=== PATIENT | female | born 1980 | race Caucasian/White ===

== ENCOUNTER 2016-05-28 16:02 | Emergency (ER) | payer OTHER ==
--- NOTE | 2016-05-28 17:48 | ED ---
General Adult HPI - General Chief complaint: Extremity Injury, Lower Stated complaint: knee injury-[facility] Time Seen by Provider: 05/28/16 17:29 Source: patient, RN notes reviewed Mode of arrival: ambulatory Limitations: no limitations - History of Present Illness Initial comments: Physical 36-year-old female presents with right knee pain 1 week. Patient states she fell from standing last week and has noticed the pain is persistent. Patient had swelling to the knee but this has improved. Patient complains of a bruise to the knee. Patient states there is pain to the anterior portion of the right knee. Patient denies any numbness/weakness or tingling. Patient has been able to ambulate. Patient Denies any chance of being .Patient denies any recent fever, chills, shortness breath, chest pain, abdominal pain, nausea/vomiting/diarrhea, back pain, hematuria, headache, or visual changes, or any other complaints. - Related Data Home Medications Medication Instructions Recorded Confirmed No Known Home Medications [No 05/28/16 05/28/16 Known Home Medications] Allergies Allergy/AdvReac Type Severity Reaction Status Date / Time Penicillins Allergy Dyspnea Verified 05/28/16 17:22 Review of Systems ROS Statement: Those systems with pertinent positive or pertinent negative responses have been documented in the HPI. ROS Other: All systems not noted in ROS Statement are negative. Past Medical History Past Medical History: No Reported History Additional Past Medical History / Comment(s): depression History of Any Multi-Drug Resistant Organisms: None Reported Past Surgical History: Section Past Psychological History: Depression Smoking Status: Never smoker Past Alcohol Use History: Occasional Past Drug Use History: None Reported General Exam - General Exam Comments Initial Comments: General: The patient is awake and alert, in no distress, and does not appear acutely ill. Neck: The neck is supple, there is no tenderness or JVD. Cardiovascular: There is a regular rate and rhythm. No murmur, rub or gallop is appreciated. Respiratory: Lungs are clear to auscultation, respirations are non-labored, breath sounds are equal. No wheezes, stridor, rales, or rhonchi. Musculoskeletal: Patient has tenderness to the anterior and medial portions of the right knee. There is old and healing ecchymosis to the anterior portion of the right knee. Patient's right knee is stable with varus and valgus stress and with anterior/posterior drawer test. There is no tenderness to palpation of the lateral aspect of the knee. Patient is ambulatory. Strength 5/5 and Sensation intact. Posterior tibial pulses 2+ bilaterally. Neurological: A&O x 3. CN II-XII intact, There are no obvious motor or sensory deficits. Coordination appears grossly intact. Speech is normal. Skin: There is old and healing ecchymosis to the anterior portion of the right knee. Skin is warm and dry and no rashes or lesions are noted. Psychiatric: Normal mood and affect. Limitations: no limitations Course Vital Signs 05/28/16 05/28/16 16:47 19:11 Temperature 97.8 F 97 F L Pulse Rate 78 88 Respiratory 16 18 Rate Blood Pressure 122/67 133/65 O2 Sat by Pulse 97 97 Oximetry Medical Decision Making - Medical Decision Making This is a 36-year-old female presents with right knee pain. On physical exam Patient has tenderness to the anterior and medial portions of the right knee. There is old and healing ecchymosis to the anterior portion of the right knee. Patient's right knee is stable with varus and valgus stress and with anterior/ posterior drawer test. There is no tenderness to palpation of the lateral aspect of the knee. Patient is ambulatory in the EC today. Strength 5/5 and Sensation intact. Posterior tibial pulses 2+ bilaterally. An x-ray of the right knee was done and read showing:No acute process. Reported by Dr. Woodard. Discussed rest, ice, elevate and use an Ruben wrap for compression. Patient states she has an Ruben wrap at home. Patient denies the need for crutches and is ambulatory in the EC. I discussed Tylenol and Motrin for the pain. Discussed that patient should follow up with PCP in one to 2 days or return to the [facility] for any worsening symptoms or for any further concerns. Patient was receptive to this plan and patient will be discharged home. Disposition Clinical Impression: Knee contusion Disposition: HOME SELF-CARE Condition: Good Instructions: Knee Pain (ED) Additional Instructions: Please rest, ice, elevate and use Ruben wrap for compression. Please use Tylenol and/or Motrin as needed for any pain. Please follow-up with family doctor in the next 2 days of symptoms have not improved. Please return to emergency room if the symptoms increase or worsen or for any other concerns. Referrals: None,Stated [Primary Care Provider] - 1-2 days Misti Virgen MD [STAFF PHYSICIAN] - 1-2 days Time of Disposition: 18:38
[2016-05-28 19:11] VITALS: BP 133/65; PULSE 88; RESP 18; TEMP 97
--- NOTE | 2016-05-28 19:29 | XR ---
EXAMINATION TYPE: XR knee complete RT DATE OF EXAM: 05/28/2016 5:57 PM COMPARISON: NONE HISTORY: Pain after injury TECHNIQUE: 3 views FINDINGS: Bones and joints and soft tissues are unremarkable. IMPRESSION: No acute process.
== END 2016-05-28 19:11 | disposition home or self-care (01) ==
LOC: EC 16:02
DX: S80.01XA Contusion of right knee, initial encounter (principal); Z88.0 Allergy status to penicillin; W01.0XXA Fall on same level from slipping, tripping and stumbling without subsequent striking against object, initial encounter
CPT/HCPCS: 99283